=== PATIENT | female | born 1965 | race Caucasian/White ===

== ENCOUNTER 2021-03-29 10:10 | Observation (INO) ==
--- NOTE | 2021-03-04 10:02 | PAT Medication Instructions ---
Medication Instructions Date of Service March 04, 2021 Home Medications Medication Instructions Recorded Chris Shafer #1 ea 02/26/21 tramadol 50 mg tablet 50 mg PO Q6H PRN #30 tab 02/27/21 tramadol 50 mg tablet 50 mg PO Q6H PRN Take morning of surgery With a small sip of water, OTHERWISE NOTHING TO EAT OR DRINK AFTER MIDNIGHT: tramadol 50 mg tablet 50 mg PO Q6H PRN (okay to take up to 4 hours prior to surgery if needed) Take evening before surgery tramadol 50 mg tablet 50 mg PO Q6H PRN (if needed) Other Notes If you have any questions please call us at [phone] or [phone] or [phone] or [phone]
--- NOTE | 2021-03-06 14:47 | Anesthesiology Consultation ---
Date of Service March 06, 2021 Assessment & Plan (1) Encounter for pre-operative examination: - COVID screening: Per assessment on 03/06: Travel screen negative, no known COVID-19 positive contacts or current COVID-19 related symptoms. Surgeon ashutosh erickson preop COVID testing. Awaiting results. - Check test AM DOS - S/P Right knee arthroscopy, Partial Medial Meniscectomy, Chondroplasty (08/23/20): LMA#4 at [facility] [place] Chart Review Chart Review: Acceptable Risk for Surgery and Patient seen in Pre Admission Te sting Consults Requested Pre-Anesthesia Teaching/Discussion Notes: Instructed NPO after midnight before surgery,except medications with 15 cc of water. Medication instructions provided according to the PAT guidelines. History Surgery Operation Date: 03/29/21 13:55 Proposed Procedures p Total Knee Arthroplasty Bilateral - Blade Pereyra DO Height/Weight Height: 5 ft 6 in Weight: 81.6 kg Allergies Allergy/AdvReac Type Severity Reaction Status Date / Time No Known Allergies Allergy Verified 03/01/21 15:23 Medications Home Medications Medication Instructions Recorded Confirmed Last Taken Wheeled Walker #1 ea 02/26/21 02/26/21 Unknown tramadol 50 mg tablet 50 mg PO Q6H PRN #30 tab 02/27/21 03/01/21 Unknown Past Medical History Medical History Asthma well controlled, no inhalers Obesity Osteoarthritis Exercise / Class Metabolic Activity II 4-5 Yardwork/Stairs/Walk up hill Past Family History Family History Mother Diabetes Sister Diabetes Grandmother (Paternal) Diabetes Past Surgical History Surgical History History of colonoscopy Hx of arthroscopy of right knee Right knee arthroscopy, Partial Medial Meniscectomy, Chondroplasty (08/23/20): LMA#4 at [facility] [place] S/P epidural steroid injection fell and chronic back pain about 10 yr ago [place] teeth extracted Past Anesthesia History No Hx of Anesthesia Complications and No Family Hx of Anesthesia Complications History of PONV No Hx of PONV and No Hx of Motion Sickness Social History Smoking Status: Never smoker Do You Dip or Chew Tobacco: No Hx Alcohol Use: Yes Alcohol type: beer and wine alcohol intake frequency: holidays/special occasions only Hx Substance Use: No substance use type: does not use Review of Systems Patient denies chest pain, shortness of breath, dyspnea on exertion, fever, chills, cough, wheezing, palpitations. Physical Exam Vital Signs VITALS BP 158/87 (monitors closely and generally very well controlled, patient currently in considerable amount of pain) P 73 TEMP 98.2 SP02 96%RA RESP 18 PHYSICAL Full cervical extension range of motion. Full TMJ range of motion. TMD 3 finger breaths Mallampati Score 2 Dentition: missing side Lungs: clear throughout to auscultation Cardiac: regular rate and rhythm, no murmurs noted Spine: normal Extremities: no edema Testing Laboratory Results 03/06/21 14:59 03/06/21 14:59 PT 10.1 Seconds (9.0-12.0) 03/06/21 14:59 INR 1.0 (0.9-1.1) 03/06/21 14:59 APTT 28.6 Seconds (21.0-31.0) 03/06/21 14:59 Blood Type O Positive 03/06/21 14:59 Antibody Screen NEGATIVE 03/06/21 14:59 Electrocardiogram Date: 08/06/20 Normal sinus rhythm at 76 bpm. Nonspecific T wave abnormality. Chest X-Ray Date: 03/06/21 Findings: + NAD
--- NOTE | 2021-03-06 15:21 | XRay Report ---
XR chest Pre-admission PA/Lat CLINICAL HISTORY: Preoperative evaluation. COMPARISON STUDY: No previous studies for comparison. FINDINGS: Lung volumes are normal. Lungs are clear. There is no pneumothorax or pleural effusion. Car diac size is normal. Mediastinal contours are normal. There is no evidence for pulmonary edema. IMPRESSION: No acute cardiopulmonary findings. ACT 112: Negative or not required by law. Electronically signed by: Sandro Dunbar M.D. 03/06/2021 3:19 PM
[2021-03-06 15:23] LABS: Basophils # (auto) 0.01 K/uL (0-0.2); Basophils % (auto) 0.1 %; Eosinophils # (auto) 0.11 K/uL (0-0.5); Eosinophils % (auto) 1.6 %; Hematocrit (blood only) 39.9 % (37-47); Hemoglobin 13.6 g/dL (12.0-16.0); Immature Granulocytes # (auto) 0.01 K/uL (0.00-0.02); Immature Granulocytes % (auto) 0.1 %; Lymphocytes # (auto) 1.99 K/uL (1.2-3.4); Lymphocytes % (auto) 28.1 %; Mean Corpuscular Hemoglobin 31.7 pg (25-34); Mean Corpuscular Hgb Conc 34.1 g/dL (32-36); Mean Platelet Volume 9.7 fL (7.4-10.4); Monocytes # (auto) 0.48 K/uL (0.11-0.59); Monocytes % (auto) 6.8 %; Neutrophils # (auto) 4.47 K/uL (1.4-6.5); Neutrophils % (auto) 63.3 %; Platelet Count 334 K/uL (130-400); RDW Coefficient of Variation 13.3 % (11.5-14.5); RDW Standard Deviation 45.9 fL (36.4-46.3); Red Blood Count 4.29 M/uL (4.2-5.4); White Blood Count 7.07 K/uL (4.8-10.8)
[2021-03-06 15:34] LABS: Partial Thromboplastin Ratio 1.1; Partial Thromboplastin Time 28.6 Seconds (21.0-31.0); Prothrombin Time 10.1 Seconds (9.0-12.0)
[2021-03-06 16:02] LABS: BUN Creatinine Ratio 26.3 (10-20); Calcium 9.2 mg/dl (8.5-10.1); Creatinine Clr Calc Pharmacy 97.8 ml/min; Est GFR (Non-African American) 97.5
--- NOTE | 2021-03-28 07:37 | History & Physical Report ---
Date of Service March 28, 2021 Assessment & Plan (1) Osteoarthritis of knees, bilateral: We will proceed with bilateral total knee arthroplasties. Postoperatively she will be placed on aspirin for DVT prophylaxis and kept overnight for postoperative medical management. She plans to use energy physical therapy upon discharge. History of Present Illness Chief Complaint: Osteoarthritis bilateral knees. Primary Care Provider: Lloyd Bhandari PA-C Marguerite is a pleasant 55-year-old female who has been complaining of chronic increasing bilateral knee pain. I did a right knee arthroscopy on her in August 2020 and during that time was a lot of arthritis in her right knee. I been trying to treat her conservatively with cortisone injections. Unfortunate she is also recently injured her left knee. Is been very painful. The x-rays did not look as bad so I sent her for an MRI. The MRI did show severe arthritis mostly involving the medial compartment. After extensive conservative treatment, she has elected proceed with bilateral total knee arthroplasties.. Allergies Allergy/AdvReac Type Severity Reaction Status Date / Time No Known Allergies Allergy Verified 03/01/21 15:23 Home Medications Medication Instructions Recorded Confirmed Type Wheeled Walker #1 ea 02/26/21 02/26/21 Rx tramadol 50 mg tablet 50 mg PO Q6H PRN #30 tab 02/27/21 03/01/21 Rx Past Med/Surg History Medical History Asthma well controlled, no inhalers Obesity Osteoarthritis Surgical History History of colonoscopy Hx of arthroscopy of right knee Right knee arthroscopy, Partial Medial Meniscectomy, Chondroplasty (08/23/20): LMA#4 at [facility] [place] S/P epidural steroid injection fell and chronic back pain about 10 yr ago [place] teeth extracted Family History Mother Diabetes Sister Diabetes Grandmother (Paternal) Diabetes Social History Smoking Status: Never smoker Second Hand Exposure: No; Hx Alcohol Use: Yes Alcohol type: beer and wine Hx Substance Use: No Preferred Language: Japanese Communication Ability: Effective Cargo Inspector Required: No Beliefs That Will Affect Care: None Current Living Situation: Spouse Feels Safe at Home: Yes Assistive Devices: Glasses Review of Systems All systems reviewed & are unremarkable except as noted in HPI & below. Physical Exam On physical examination of the both knees, she has a trace effusion. She is good motion from 0 to 120 degrees. She has severe pain over the distal medial femoral condyles and over the medial joint lines.. Constitutional WD/WN, vitals as above Eyes PERRL, conjunctivae normal, anicteric sclerae ENMT external ear and nose normal, oropharynx normal Neck trachea midline, no thyromegaly Respiratory normal respiratory effort Cardiovascular RRR, no murmur, no edema Gastrointestinal (Abdomen) normal bowel sounds, soft, nontender, no hepatosplenomegaly Psychiatric A+Ox3, euthymic affect Results & Data Results & Data Laboratory Results . Diagnostic Findings X-rays of both knees do show some medial compartmental arthritis. There is no gross deformity. MRI of the left knee does show advanced osteoarthritis mostly involving the medial compartment with edema in the bone.. PG Care Time/CCT Total # of Minutes Spent Total Time Spent with Patient: Total time spent is greater than 50% in coordination of care (as documented) at patient's floor/unit and/or counseling patient: Coding Level of Care Code None Diagnoses Osteoarthritis of knees, bilateral M17.0
[~2021-03-29 10:10] MED LIST: ACETAMINOPHEN 500 MG TAB PO SCH; BUPIVACAINE 0.25% 30 ML VIAL ONE; BUPIVACAINE 0.5 % 5 MG/1 ML PF 10ML VIAL ONE; EPINEPHrine INJ 1 MG/ML AMP ONE; FAMOTIDINE 20 MG TAB PO SCH; GABAPENTIN 600 MG DOSE PO SCH; LR 15ML/HR IV SCH; LR 500ML BOLUS IV SCH; LR 60ML/HR IV SCH; MIDAZOLAM HCL 1 MG/ML 2ML VIAL ONE; PROPOFOL IV EMULSION 10 MG/ML 20 ML VIAL IV ONE; ROPIVACAINE 0.5% HCL/PF 150 MG, BUPIVACAINE 0.75% MPF 20 ML, EPINEPHrine 30MG/30ML (OR ... INFIL SCH; TRANEXAMIC ACID / 0.7% NACL 1,000 MG/100 ML BAG IV SCH; TRANEXAMIC ACID 1,000 MG **IV Intra-op IV SCH; ceFAZolin 2000MG 2,000 MG/15 ML SYR IV SCH; dexAMETHasone 4 MG TAB PO SCH; fentaNYL citrate 100 MCG/2 ML VIAL ONE
--- NOTE | 2021-03-29 10:27 | History & Physical Bridge Note ---
Date of Service March 29, 2021 History & Physical Bridge Note I have examined the patient, reviewed the History & Physical and in the interval since the performance of the History & Physical I have noted the following changes of clinical significance: no changes noted
[2021-03-29] MEDS ORDERED: fentaNYL citrate 100 MCG/2 ML VIAL IV PRN (11:01)
[2021-03-29] MEDS ORDERED: HYDROmorphone INJ 2 MG/ML SYR/VIAL IV PRN (11:01)
[2021-03-29] MEDS ORDERED: ePHEDrine sulfate 50 MG/ML AMP IV PRN (11:01)
[2021-03-29] MEDS ORDERED: ONDANSETRON INJ 2 MG/ML 2 ML VIAL IV PRN (11:01)
[2021-03-29] MEDS ORDERED: ATROPINE SULFATE 0.1 MG/ML 10ML SYR IV PRN (11:01)
[2021-03-29] MEDS ORDERED: ORTHO JOINT ANESTHETIC ONE (11:04)
[2021-03-29] MEDS ORDERED: PROPOFOL IV EMULSION 10 MG/ML 20 ML VIAL IV ONE ×3 (12:06→12:22)
[2021-03-29] MEDS ORDERED: fentaNYL citrate 100 MCG/2 ML VIAL ONE (12:14)
--- NOTE | 2021-03-29 13:53 | Operative Report ---
PG Post Operative Report Pre & Post Diagnosis Operation Date: 03/29/21 13:00 Pre-Op Diagnosis: Degenerative Joint Disease Bilateral Knees Post-Op Diagnosis: Degenerative Joint Disease Bilateral Knees I identified the patient and participated in the time-out.: Yes Procedure Operation Date: 03/29/21 13:00 Actual Procedures p Bilateral Total Knee Arthroplasty, Cemented(Bilateral) - Blade Pereyra DO Surgeon Blade Pereyra DO Deep Fat [employer] Cook Blade Aaron PAC Estimated Blood Loss 20 Findings Consistent with Post-Op Diagnosis Specimens Bilateral femoral and tibial bone Complications none Disposition Disposition: Recovery Room Indications Marguerite is a pleasant 55-year-old female who has been dealing with chronic increasing bilateral knee pain. I did a right knee scope on her back in August. I saw a lot of arthritis at that time. We MRI to her left knee and it showed advanced osteoarthritis as well. After failing extensive conservative treatment, she elected proceed with bilateral total knee arthroplasties. Description of Procedure Marguerite arrived [facility] for the above procedure. She was seen in the preoperative holding area and both knees were identified and signed. She was given a preoperative antibiotic, TXA, a spinal anesthetic and adductor nerve blocks. She was taken back to the operating room and laid on the table in supine position. She was given basic sedation. Both knees were then prepped and draped in sterile fashion. A timeout was done, and the patient and the operative extremities were properly identified. Right knee implants used: I used a Spencer Persona total knee arthroplasty system with a size 8 narrow femur, D tibia, 32 patella, and a size 11 medial congruent polyethylene bearing. All components were cemented in place with Simplex HV cement. A midline incision was made directly over the patella. Dissection was taken down to the extensor mechanism. A subvastus arthrotomy was used. The medial retinaculum was released and the fat pad was mostly excised. The knee was flexed and the ACL, PCL, and meniscus were removed. A drill was sent down the center of the femoral canal followed by an intramedullary adelfo. Off that adelfo a distal femoral cutting block was placed. 9 mm was resected off the distal femur at 5 of valgus. A posterior referencing AP sizing guide was then placed on the distal femur. The femur measured to be a size 8 narrow. 2 drill holes were placed in 3 of external rotation. A 4-in-1 cutting block was then impacted into place. Anterior, posterior, and chamfer cuts were then made. The proximal tibia was then exposed. An external tibial alignment guide was placed. A tibial cut guide was then anchored in place and the proximal tibia was then resected. The posterior aspect of the knee was then opened up and any additional meniscus fragments and osteophytes were removed. The tibia measured to be a size D. The tibial plate was then placed in the appropriate rotation and the tibia was drilled and punched. Trial components were then placed. I used a size 11 medial congruent polyethylene insert. The knee was brought through a full range of motion and felt to be stable. The peg holes for the femur were then drilled. The patella was then everted and 9 mm was resected off the posterior aspect of the patella. The patella measured to be a size 32. 3 peg holes were then drilled. A trial patella was placed. The knee was once again brought through a full range of motion and felt to be stable. Trial components were then removed. The surrounding soft tissues were injected with 50 cc of an orthopedic pain control cocktail. All components were then cemented into place with Simplex HV cement. The final polyethylene insert was then snapped into place. Once cement was dry the tourniquet was deflated. Hemostasis was obtained. A dilute betadyne lavage was then done for 3 minutes. The joint was then irrigated with normal saline solution. The subvastus art hrotomy was then closed with #1 Vicryl suture. The skin was closed with 2-0 Vicryl, 3-0V lock suture, and supa. A Silverlon and a soft compressive dressing were placed. Left knee implants used: I used a Spencer Persona total knee arthroplasty system with a size 8 narrow femur, D tibia, 32 patella, and a size 11 medial congruent polyethylene bearing. All components were cemented in place with Simplex HV cement. A midline incision was made directly over the patella. Dissection was taken down to the extensor mechanism. A subvastus arthrotomy was used. The medial retinaculum was released and the fat pad was mostly excised. The knee was flexed and the ACL, PCL, and meniscus were removed. A drill was sent down the center of the femoral canal followed by an intramedullary adelfo. Off that adelfo a distal femoral cutting block was placed. 9 mm was resected off the distal femur at 5 of valgus. A posterior referencing AP sizing guide was then placed on the distal femur. The femur measured to be a size 8 narrow. 2 drill holes were placed in 3 of external rotation. A 4-in-1 cutting block was then impacted into place. Anterior, posterior, and chamfer cu ts were then made. The proximal tibia was then exposed. An external tibial alignment guide was placed. A tibial cut guide was then anchored in place and the proximal tibia was resected. The posterior aspect of the knee was then opened up and any additional meniscus fragments and osteophytes were removed. The tibia measured to be a size D. The tibial plate was then placed in the appropriate rotation and the tibia was drilled and punched. Trial components were then placed. I used a size 11 medial congruent polyethylene insert. The knee was brought through a full range of motion and felt to be stable. The peg holes for the femur were then drilled. The patella was then everted and 9 mm was resected off the posterior aspect of the patella. The patella measured to be a size 32. 3 peg holes were then drilled. A trial patella was placed. The knee was once again brought through a full range of motion and felt to be stable. Trial components were then removed. The surrounding soft tissues were injected with 50 cc of an orthopedic pain control cocktail. All components were then cemented into place with Simplex HV cement. The final polyethylene insert was then snapped into place. Once cement was dry the tourniquet was deflated. Hemostasis was obtained. A dilute betadyne lavage was then done for 3 minutes. The joint was then irrigated with normal saline solution. The subvastus arthrotomy was then closed with #1 Vicryl suture. The skin was closed with 2-0 Vicryl, 3-0V lock suture, and supa. A Silverlon and a soft compressive dressing were placed. Raymundo was then transferred to a hospital bed and taken to the postanesthesia care unit in stable condition. She tolerated the procedure well. Blade Aaron PA-C, was present for the entire procedure. He was critical for patient positioning, prepping, draping, retraction exposure, wound closure and application of sterile dressing. I attest to the content of the Intraoperative Record and any orders documented therein. Any exceptions are noted below.
--- NOTE | 2021-03-29 14:37 | Anesthesiology Progress Note ---
Date of Service March 29, 2021 Anesthesia Post Procedure Vital Signs Vital Signs: Temp Pulse Pulse Resp BP BP Pulse Ox 03/29/21 14:30 56 L 12 144/89 H 98 03/29/21 14:20 68 16 127/80 99 03/29/21 14:14 36.1 C L 82 14 129/90 96 03/29/21 10:39 37.1 C 70 20 162/99 H 99 Pain Intensity Bilateral Knee: Pain Intensity: 3 Transfer of Care Handoff Completed per policy Notes Mental Status: alert / awake / arousable and participated in evaluation Patient Amnestic to Procedure: Yes Nausea / Vomiting: adequately controlled Pain: adequately controlled Airway Patency, RR, SpO2: stable & adequate BP & HR: stable & adequate Hydration State: stable & adequate Anesthetic Complications: no major complications apparent and Pt Satisfied with anesthetic care
--- NOTE | 2021-03-29 14:49 | XRay Report ---
XR knee LT 1 or 2V routine HISTORY: 55 years-old Female Surgical Post Op [knee total joint arthroplasty COMPARISON: None TECHNIQUE: 2 views of the left knee FINDINGS: Left knee total joint arthroplasty and patella resurfacing. Anterior midline skin supa with expect ed postoperative soft tissue swelling and deep tissue air. No acute fracture, malalignment or unexpec zabrina opaque foreign body. IMPRESSION: Left knee total joint arthroplasty and patella resurfacing with expected postoperative ch anges. ACT 112: Negative or not required by law. The above report was generated using voice recognition software. It may contain grammatical, syntax o r spelling errors. Electronically signed by: Power Perez M.D. 03/29/2021 2:48 PM
--- NOTE | 2021-03-29 14:50 | XRay Report ---
XR knee RT 1 or 2V routine HISTORY: 55 years-old Female Surgical Post Op right knee total joint arthroplasty COMPARISON: None TECHNIQUE: 2 views of the right knee FINDINGS: Right knee total joint arthroplasty and patella resurfacing. Anterior midline skin supa are noted along with expected postoperative soft tissue swelling and deep tissue air. No acute fracture, malali gnment or unexpected opaque foreign body. IMPRESSION: Right knee total joint arthroplasty with expected postoperative changes. ACT 112: Negative or not required by law. The above report was generated using voice recognition software. It may contain grammatical, syntax o r spelling errors. Electronically signed by: Power Perez M.D. 03/29/2021 2:48 PM
[2021-03-29] MEDS ORDERED: MAGNESIUM HYDROXIDE SUSP 30 ML UDC PO PRN (15:35)
[2021-03-29] MEDS ORDERED: NALOXONE HCL 0.4 MG/1 ML VIAL/CARP IV PRN (15:35)
[2021-03-29] MEDS ORDERED: HYDROmorphone INJ 0.5 MG/0.5 ML SYR IV PRN (15:35)
[2021-03-29] MEDS ORDERED: METOCLOPRAMIDE HCL INJ 5 MG/ML 2 ML VIAL IV PRN (15:35)
[2021-03-29] MEDS ORDERED: bisacodyL 10 MG SUPP PR PRN (15:35)
[2021-03-29] MEDS: ONDANSETRON INJ 2 MG/ML 2 ML VIAL IV PRN (16:11)
[2021-03-29] MEDS: KETOROLAC 30 MG/ML VIAL IV SCH ×2 (17:28→22:07)
[2021-03-29] MEDS: SODIUM CHLORIDE 0.9% 1000ML 1,000 ML IV SCH (17:28)
[2021-03-29] MEDS: oxyCODONE HCL IR 5 MG TAB (IMMEDIATE RELEASE) PO PRN (19:35)
[2021-03-29] MEDS: ceFAZolin 2000MG 2,000 MG/15 ML SYR IV SCH (19:35)
[2021-03-29] MEDS: SENNA 8.6 MG TAB PO SCH (20:03)
[2021-03-29] MEDS: DOCUSATE SODIUM 100 MG CAP PO SCH (20:03)
[2021-03-29] MEDS: ASPIRIN 81 MG ECTAB PO SCH (20:03)
[2021-03-29] MEDS: ACETAMINOPHEN 500 MG TAB PO SCH (22:07)
[2021-03-30] MEDS: ceFAZolin 2000MG 2,000 MG/15 ML SYR IV SCH (03:16)
[2021-03-30] MEDS: KETOROLAC 30 MG/ML VIAL IV SCH ×4 (03:16→22:21)
[2021-03-30] MEDS: SODIUM CHLORIDE 0.9% 1000ML 1,000 ML IV SCH ×2 (03:16→12:57)
[2021-03-30] MEDS: ACETAMINOPHEN 500 MG TAB PO SCH ×3 (05:47→22:21)
[2021-03-30] MEDS: oxyCODONE HCL IR 5 MG TAB (IMMEDIATE RELEASE) PO PRN ×2 (07:30→12:55)
--- NOTE | 2021-03-30 07:47 | Orthopedic Progress Note ---
Date of Service March 30, 2021 Assessment & Plan (1) Status post bilateral knee replacements: Overall she is doing fairly well. She will be seen by physical therapy today for ambulation and range of motion exercises. She is on aspirin for DVT prophylaxis. We will keep her in the hospital today for pain control and ambulation. We plan to discharge her to home tomorrow. The dressings can be changed after physical therapy today. Khadijah Everett was seen and examined at bedside this morning. Overall she is doing fairly well. She not any much pain in her knees. She is happy with her progress and has no complaints.. Review of Systems All systems reviewed & are unremarkable except as noted in HPI & below. Physical Exam On physical examination of both knees, her dressings are clean and dry. Her legs are out full extension. She has active dorsiflexion and plantarflexion of her ankles. Sensations intact throughout.. Results & Data Results & Data Laboratory Results . Diagnostic Findings Postoperative x-rays of both knees show the prosthesis to be in anatomic alignment without any evidence of fracture, dislocation, or loosening. PG Care Time/CCT Total # of Minutes Spent Total Time Spent with Patient: Total time spent is greater than 50% in coordination of care (as documented) at patient's floor/unit and/or counseling patient: Coding Level of Care Code 12368 Post Operative Follow-Up Diagnoses Status post bilateral knee replacements Z96.653
[2021-03-30] MEDS ORDERED: dexAMETHasone 4 MG TAB PO SCH (08:00)
[2021-03-30] MEDS: ASPIRIN 81 MG ECTAB PO SCH ×2 (08:19→20:35)
[2021-03-30] MEDS: DOCUSATE SODIUM 100 MG CAP PO SCH ×2 (08:19→20:34)
[2021-03-30] MEDS: MULTIVITAMIN TAB PO SCH (08:19)
[2021-03-30] MEDS: ONDANSETRON INJ 2 MG/ML 2 ML VIAL IV PRN ×2 (09:36→14:24)
[2021-03-30] MEDS: SENNA 8.6 MG TAB PO SCH (20:34)
[2021-03-31] MEDS: KETOROLAC 30 MG/ML VIAL IV SCH ×2 (03:59→09:12)
[2021-03-31] MEDS: ACETAMINOPHEN 500 MG TAB PO SCH (06:29)
[2021-03-31] MEDS: ONDANSETRON INJ 2 MG/ML 2 ML VIAL IV PRN (08:00)
--- NOTE | 2021-03-31 09:07 | Orthopedic Progress Note ---
Date of Service March 31, 2021 Assessment & Plan (1) Status post bilateral knee replacements: Overall she is doing well. She is having much pain in her knees. She was seen by physical therapy again for ambulation and range of motion exercises. She is on aspirin for DVT prophylaxis. If she participates well with physical therapy and she is feeling well enough to go home that she can be discharged home later today. However, if she continues to feel little bit nauseous and lightheaded with therapy, or is unable to participate well, she can stay until tomorrow and I will see her then. Khadijah Everett was seen and examined at bedside this morning. Overall she is doing fairly well. She is having some pain in her knees but is not too bad. She was able to participate with physical therapy and Occupational Therapy yesterday. She felt a little lightheaded and nauseous after each session. She is feeling better now. She has no new complaints.. Review of Systems All systems reviewed & are unremarkable except as noted in HPI & below. Physical Exam On physical examination of both knees, the dressings have been changed. The inc isions look good. She is active dorsiflexion plantarflexion of both ankles. Sensations intact throughout.. Results & Data Results & Data Laboratory Results . Diagnostic Findings . PG Care Time/CCT Total # of Minutes Spent Total Time Spent with Patient: Total time spent is greater than 50% in coordination of care (as documented) at patient's floor/unit and/or counseling patient: Coding Level of Care Code 51455 Post Operative Follow-Up Diagnoses Status post bilateral knee replacements Z96.653
[2021-03-31] MEDS: oxyCODONE HCL IR 5 MG TAB (IMMEDIATE RELEASE) PO PRN (09:12)
[2021-03-31] MEDS: DOCUSATE SODIUM 100 MG CAP PO SCH (09:13)
[2021-03-31] MEDS: MULTIVITAMIN TAB PO SCH (09:13)
[2021-03-31] MEDS: ASPIRIN 81 MG ECTAB PO SCH (09:13)
== END 2021-03-31 13:36 | disposition home health service (06) ==
LOC: ASU 10:10 → 3E 10:10
DX: M17.0 Bilateral primary osteoarthritis of knee; Z79.891 Long term (current) use of opiate analgesic